=== PATIENT | female | born 1975 | race Caucasian/White ===

== ENCOUNTER 2025-01-15 10:00 | Outpatient (RCR) | payer BC, SELFPAY | END 2025-01-15 23:59 | disposition home or self-care (01) | LOC: PT.CARL 10:00 | PROVIDERS: Visit Provider Nurse Practitioner Family | DX: M54.2 Cervicalgia (principal); G89.29 Other chronic pain | CPT/HCPCS: 97110; 97140; 97161 ==

== ENCOUNTER 2025-02-05 10:00 | Outpatient (RCR) | payer BC, SELFPAY | END 2025-02-05 23:59 | disposition home or self-care (01) | LOC: PT.CARL 10:00 | PROVIDERS: Visit Provider Nurse Practitioner Family | DX: M54.2 Cervicalgia (principal); G89.29 Other chronic pain | CPT/HCPCS: 97110; 97140 ==